=== PATIENT | female | born 1995 ===

== ENCOUNTER 2019-02-18 15:40 | Outpatient (CLI) | payer BC ==
--- NOTE | 2019-02-18 15:50 | RAD ---
EXAM: Chest 2 views: HISTORY: Fever COMPARISON: None. FINDINGS: There is a normal-sized cardiomediastinal silhouette. There is no evidence of consolidation, mass, or pleural effusion. The bones are unremarkable. IMPRESSION: No evidence of acute cardiopulmonary disease
== END 2019-02-18 15:41 | disposition home or self-care (01) ==
LOC: RAD-FRANK 15:40
PROVIDERS: ATTEND Nurse Practitioner Family
DX: J02.9 Acute pharyngitis, unspecified (principal)
CPT/HCPCS: 71046